=== PATIENT | female | born 1990 | race Caucasian/White ===

== ENCOUNTER 2017-05-27 14:21 | Emergency (ER) | payer MEDICAID ==
[~2017-05-27] VITALS: Ht 157.5 cm; Wt 60.8 kg
[~2017-05-27 14:21] MED LIST: CEPH-37 PO; DOCU-94 PO; TRAM50TA2 PO
[2017-05-27 14:31] VITALS: BP 145/83
[2017-05-27] MEDS ORDERED: KETOROLAC TROMETH 60MG/2ML VIAL IM ONE (16:45)
== END 2017-05-27 17:30 | disposition home or self-care (01) ==
LOC: ER 14:21
DX: S02.602A Fracture of unspecified part of body of left mandible, initial encounter for closed fracture (principal); N39.0 Urinary tract infection, site not specified; W19.XXXA Unspecified fall, initial encounter; Y93.89 Activity, other specified; Y92.89 Other specified places as the place of occurrence of the external cause; Y99.8 Other external cause status
CPT/HCPCS: 70110; 81025; 96372; 99284; J1885

== ENCOUNTER 2022-01-14 17:00 | Emergency (ER) | payer MEDICAID ==
[~2022-01-14] VITALS: Ht 157.5 cm; Wt 63.3 kg
[2022-01-14 19:03] VITALS: BP 114/80
[2022-01-14] MEDS ORDERED: diphenhdrAMINE HCL 50 MG/1 ML VL IM ONE (19:15)
[2022-01-14] MEDS ORDERED: methylPREDNISolone SOD SUCC 125 MG/2 ML VL IM ONE (19:15)
[2022-01-14] MEDS ORDERED: METH4PAK PO (20:10)
[2022-01-14] MEDS ORDERED: HYDR-3682 PO (20:10)
== END 2022-01-14 20:24 | disposition home or self-care (01) ==
LOC: ER 17:02
DX: R50.9 Fever, unspecified (principal); B09 Unspecified viral infection characterized by skin and mucous membrane lesions; Z79.899 Other long term (current) drug therapy
CPT/HCPCS: 96372; 99284; J1200; J2930